=== PATIENT | female | born 1995 | race Caucasian/White ===

== ENCOUNTER → 2019-04-06 | Emergency (ER) | payer OTHER ==
[~2019-04-06] VITALS: Ht 165.1 cm; Wt 63.5 kg
[~2019-04-06] MED LIST: AUGMENTIN 875-1 EAC1 ORAL; DICYCLOMINE HCL10 MG ORAL; Ketorolac 30mg Inj IV ONE; Morphine Sulfate 4mg/ml Inj (IV USE ONLY) IVP ONE; ONDANSETRON ODT4 MG BC; Omnipaque-300 100ml vial INJ PRN
[2019-04-06 06:26] VITALS: BP 153/81
--- NOTE | 2019-04-06 06:28 | NUR ---
ER Nurse Note: Pt brought in by ambulance c/o abd pain with n/v from unk cause. Per pt, pt stated she could be but does not remember. Pt is moaning, guarding abd site. Pt stated she vomited prior to arrival. Denies taking meds, etoh, drugs. All safety measures met; will continue to montior.
--- NOTE | 2019-04-06 06:48 | Emergency Room Report ---
History of Present Illness General Chief Complaint: Abdominal Pain Source: Patient Present Illness HPI Disclaimer: Please note that this report is being documented using [employer] technology. This can lead to erroneous entry secondary to incorrect interpretation by the dictating instrument. HPI: 23-year-old female with history of cholelithiasis, untreated hepatitis C, IV drug abuse presents for evaluation of abdominal pain. Symptoms began 2 to 3 hours prior to arrival. She reports right-sided upper and lower cramping and sharp abdominal pain. She states the pain is more located in the right lower quadrant and radiates up to the right upper quadrant. Denies pain in the flanks. Denies history of kidney stones, ovarian cyst, ovarian torsion. Cannot recall last menstrual period; states they come very regularly. She does not use control. Denies any recent drug or alcohol abuse. She states she was supposed to have a cholecystectomy but never scheduled this. Denies any recent fevers, chills, chest pain, shortness of breath, cough, sore throat, diarrhea. 2 episodes of emesis prior to arrival. No current nausea. Denies dysuria, hematuria or vaginal bleeding or vaginal discharge. Pain is currently a 10/10. No associated relieving or exacerbating factors. PMH: Hepatitis C, IV drug abuse PSH: Denies Allergies: Denies Social Hx: Methamphetamine use, opiate abuse, alcohol use, tobacco use Allergies: Coded Allergies: No Known Allergies (Unverified , 04/06/19) Patient History Last Menstrual Period: refused to discuss Nursing Documentation-PMH Past Medical History: No History, Except For Review of Systems All Other Systems: negative except mentioned in HPI Physical Exam Vital Signs Date Time Temp Pulse Resp B/P (MAP) Pulse Ox O2 Delivery O2 Flow Rate FiO2 04/06/19 06:15 98.1 76 20 153/81 (105) 100 Room Air General: Awake and alert, writhing around in pain HEENT: NC/AT. EOMI. Neck: Supple, trachea midline Chest Wall: No tenderness, no deformity Cardiovascular: RRR. S1 and S2 normal. No murmur appreciated Resp: Normal work of breathing. No cough, wheezing or crackles appreciated Abdomen: Abdomen is soft, nondistended. Tender palpation in the right lower quadrant without rebound. Tenderness also in the right upper quadrant. Cannot perform Hooks's given patient cooperation. Tenderness in suprapubic and mild tenderness in left lower quadrant as well. Skin: Intact. No abrasions, laceration or rash over the exposed skin MSK: Normal tone and bulk. Moving all extremities. No obvious deformity. Neuro: Awake and alert. Mentating appropriately Medical Decision Making Diagnostic Impression: Primary Impression: Enteritis ER Course This is a 23-year-old female presenting for evaluation of 3 hours abdominal pain with 2 episodes of emesis. Differential includes was not limited to cholecystitis, pancreatitis, nephrolithiasis, hepatitis, appendicitis, ovarian cyst, ovarian torsion, UTI, pyelonephritis, mesenteric adenitis, bowel obstruction, mesenteric ischemia. Start a broad metabolic infectious work-up. Will send patient for a CT scan of the abdomen. Will provide IV fluids, antiemetics and pain medications. Laboratory Tests Test 04/06/19 06:30 04/06/19 08:05 White Blood Count 13.6 K/UL (4.8-10.8) H Red Blood Count 4.88 M/UL (4.20-5.40) Hemoglobin 14.8 G/DL (12.0-16.0) Hematocrit 38.9 % (37.0-47.0) Mean Corpuscular Volume 80 FL (80-99) Mean Corpuscular Hemoglobin 30.4 PG (27.0-31.0) Mean Corpuscular Hemoglobin Concent 38.2 G/DL (32.0-36.0) H Red Cell Distribution Width 11.9 % (11.6-14.8) Platelet Count 323 K/UL (150-450) Mean Platelet Volume 7.0 FL (6.5-10.1) Neutrophils (%) (Auto) 72.8 % (45.0-75.0) Lymphocytes (%) (Auto) 20.6 % (20.0-45.0) Monocytes (%) (Auto) 4.9 % (1.0-10.0) Eosinophils (%) (Auto) 0.1 % (0.0-3.0) Basophils (%) (Auto) 1.6 % (0.0-2.0) Sodium Level 139 MMOL/L (136-145) Potassium Level 4.3 MMOL/L (3.5-5.1) Chloride Level 101 MMOL/L (98-107) Carbon Dioxide Level 14 MMOL/L (21-32) L Anion Gap 25 mmol/L (5-15) H Blood Urea Nitrogen 13 mg/dL (7-18) Creatinine 0.9 MG/DL (0.55-1.30) Estimate Glomerular Filtration Rate > 60 mL/min (>60) Glucose Level 85 MG/DL (74-106) Calcium Level 9.7 MG/DL (8.5-10.1) Total Bilirubin 1.5 MG/DL (0.2-1.0) H Direct Bilirubin 0.2 MG/DL (0.0-0.3) Aspartate Amino Transferase (AST) 42 U/L (15-37) H Alanine Aminotransferase (ALT) 31 U/L (12-78) Alkaline Phosphatase 60 U/L (46-116) Total Protein 8.2 G/DL (6.4-8.2) Albumin 4.2 G/DL (3.4-5.0) Globulin 4.0 g/dL Albumin/Globulin Ratio 1.0 (1.0-2.7) Lipase 92 U/L (73-393) Urine Color Pale yellow Urine Appearance Clear Urine pH 5 (4.5-8.0) Urine Specific [place] 1.030 (1.005-1.035) Urine Protein 1+ (NEGATIVE) H Urine Glucose (UA) Negative (NEGATIVE) Urine Ketones 4+ (NEGATIVE) H Urine Blood Negative (NEGATIVE) Urine Nitrite Negative (NEGATIVE) Urine Bilirubin Negative (NEGATIVE) Urine Urobilinogen Normal MG/DL (0.0-1.0) Urine Leukocyte Esterase Negative (NEGATIVE) Urine RBC 0-2 /HPF (0 - 2) Urine WBC 0-2 /HPF (0 - 2) Urine Squamous Epithelial Cells Moderate /LPF (NONE/OCC) H Urine Bacteria Few /HPF (NONE) Urine HCG, Qualitative Negative (NEGATIVE) Urine Opiates Screen Positive (NEGATIVE) H Urine Barbiturates Screen Positive (NEGATIVE) H Phencyclidine (PCP) Screen Negative (NEGATIVE) Urine Amphetamines Screen Positive (NEGATIVE) H Urine Benzodiazepines Screen Negative (NEGATIVE) Urine Cocaine Screen Negative (NEGATIVE) Urine Marijuana (THC) Screen Positive (NEGATIVE) H CT/MRI/US Diagnostic Results CT/MRI/US Diagnostic Results : Impression IMPRESSION: Probable mild enteritis with the mild dilatation of mid small bowel loops. Please correlate clinically. Normal appendix Reevaluation Time: 11:59 Last Vital Signs Date Time Temp Pulse Resp B/P (MAP) Pulse Ox O2 Delivery O2 Flow Rate FiO2 04/06/19 06:26 98.1 80 20 153/81 100 Room Air Reevaluation Impression Labs have returned largely within normal limits. Tox screen positive for opiates, barbiturates, amphetamines, THC. No evidence of infection on urinalysis. CT consistent with an enteritis. May be withdrawal or an infectious enteritis. Given the patient's poor follow-up and risk factors will start antibiotics. We will continue antiemetics. Can follow-up on an outpatient basis. Can return with new or worsening symptoms. Disposition: HOME, SELF-CARE Condition: Stable Scripts Dicyclomine Hcl* (DICYCLOMINE HCL*) 10 Mg Capsule 10 MG ORAL QID, #20 CAP Prov: Neil Del Castillo MD 04/06/19 Ondansetron Odt* (ZOFRAN ODT*) 4 Mg Tab.rapdis 4 MG BC EVERY 6 HOURS PRN for Nausea & Vomiting, #20 TAB 0 Refills Prov: Neil Del Castillo MD 04/06/19 Amoxicillin/Potassium Clav 875-125* (AUGMENTIN 875-125 TABLET*) 1 Each Tablet 1 TAB ORAL TWICE A DAY, #14 TAB Prov: Neil Del Castillo MD 04/06/19 Neil Del Castillo MD Apr 06, 2019 06:48
[2019-04-06 07:05] LABS: ANION GAP 25 mmol/L (5-15); BLOOD UREA NITROGEN 13 mg/dL (7-18); CALCIUM 9.7 MG/DL (8.5-10.1); CARBON DIOXIDE 14 MMOL/L (21-32); CHLORIDE 101 MMOL/L (98-107); CREATININE 0.9 MG/DL (0.55-1.30); POTASSIUM 4.3 MMOL/L (3.5-5.1); SODIUM 139 MMOL/L (136-145)
--- NOTE | 2019-04-06 07:08 | NUR ---
ER Nurse Note: Report given to JEYSON Henderson for continuity of care. Fluids infusing, meds given by second RN. Pt has not provided urine sample, Beatriz notified. All safety measures met; will endorse care to oncoming shift.
[2019-04-06 07:10] LABS: BASOPHILS % (AUTO) 1.6 % (0.0-2.0); EOSINOPHILS % (AUTO) 0.1 % (0.0-3.0); HEMATOCRIT 38.9 % (37.0-47.0); HEMOGLOBIN 14.8 G/DL (12.0-16.0); LYMPHOCYTES % (AUTO) 20.6 % (20.0-45.0); MEAN CORPUSCULAR VOLUME 80 FL (80-99); MONOCYTES % (AUTO) 4.9 % (1.0-10.0); NEUTROPHILS % (AUTO) 72.8 % (45.0-75.0); PLATELET COUNT 323 K/UL (150-450); RED BLOOD COUNT 4.88 M/UL (4.20-5.40); RED CELL DISTRIBUTION WIDTH 11.9 % (11.6-14.8); WHITE BLOOD COUNT 13.6 K/UL (4.8-10.8)
--- NOTE | 2019-04-06 07:10 | NUR ---
ED Nurse Note: RECEIVED PATIENT IN BED, PATIENT IS GUARDING AND IN PAIN, NOTIFIED TO DR RECINOS, AT THIS TIME AWAITING FOR URINE PREG TEST. EXPLAINED TO THE PATIENT AND PROVIDED WITH BEDPAN TO ASSIST, PATIENT VERBALIZED UNDERSTANDING. FLUID IS INFUSING WITHOUT COMPLICATION.
[2019-04-06 07:15] LABS: ALANINE AMINOTRANSFERASE 31 U/L (12-78); ALBUMIN 4.2 G/DL (3.4-5.0); ALKALINE PHOSPHATASE 60 U/L (46-116); ASPARTATE AMINO TRANSFERASE 42 U/L (15-37); BILIRUBIN,TOTAL 1.5 MG/DL (0.2-1.0)
[2019-04-06 07:25] LABS: BILIRUBIN,DIRECT 0.2 MG/DL (0.0-0.3)
--- NOTE | 2019-04-06 08:11 | NUR ---
ED Nurse Note: urine sent to lab
[2019-04-06 08:19] LABS: APPEARANCE,URINE CLEAR; BILIRUBIN, URINE NEGATIVE (NEGATIVE); COLOR,URINE PALE YELLOW; GLUCOSE, URINE (UA) NEGATIVE (NEGATIVE); KETONES,URINE 4+ (NEGATIVE); LEUKOCYTE ESTERASE ,URINE NEGATIVE (NEGATIVE); NITRITE,URINE NEGATIVE (NEGATIVE); PH,URINE 5 (4.5-8.0); PROTEIN,URINE 1+ (NEGATIVE); UROBILINOGEN,URINE NORMAL MG/DL (0.0-1.0)
--- NOTE | 2019-04-06 08:41 | NUR ---
ED Nurse Note: patient taken to CT scan.
--- NOTE | 2019-04-06 09:39 | NUR ---
ED Nurse Note: patient unable to tolerate CT scan at this time due to pain. notified to Dr. Del Castillo.
--- NOTE | 2019-04-06 10:02 | NUR ---
ED Nurse Note: patient from sober living facility: [facility] [phone]
--- NOTE | 2019-04-06 11:46 | Diagnostic Imaging Report ---
INDICATION: Abdominal pain TECHNIQUE: Continuous helical transaxial imaging of the abdomen and pelvis was obtained from the lung bases to the pubic symphysis during intravenous contrast administration. Coronal 2-D reformats were also obtained. Study obtained in a Siemens sensation [address] Automatic Exposure Control was utilized. Total Dose length Product (DLP): 202.[address] Dose Index Volume (CTDIvol): 4.2 mGy COMPARISON: None FINDINGS: There is motion artifact limiting evaluation on this study. Lungs: The visualized lung bases are clear. Liver: The liver is hypodense consistent with fatty infiltration. Gallbladder/biliary system: No gallstones are identified. There is no evidence of intrahepatic or extrahepatic biliary ductal dilatation. Spleen: Unremarkable Pancreas: Unremarkable Kidneys/Bladder: No hydronephrosis identified. Both kidneys enhance symmetrically. The urinary bladder is unremarkable.. Adrenal glands: Unremarkable Aorta/IVC: Unremarkable Bowel: Mild distention of the mid small bowel loops noted. This may be due to mild enteritis. Correlate clinically. Peritoneum: There is minimal free fluid within the pelvis which may be physiologic accounting for patient's age and sex. Uterus is noted. The appendix is normal.. Bones: Unremarkable IMPRESSION: Probable mild enteritis with the mild dilatation of mid small bowel loops. Please correlate clinically. Normal appendix Limited study due to motion The CT scanner at [facility] is accredited by the [employer] and the scans are performed using dose optimization techniques as appropriate to a performed exam including Automatic Exposure control.
[2019-04-06 12:06] VITALS: BP 127/72
[2019-04-06 12:07] VITALS: BP 127/72
--- NOTE | 2019-04-06 12:07 | NUR ---
ER DISCHARGE NOTE: Patient is cleared to be discharged per ERMD DR RECINOS pt is aox4, on room air, with stable vital signs. pt was given dc and prescription instructions, pt was able to verbalize understanding, pt id band and iv site removed without complications. pt is able to ambulate with steady gait. pt took all belongings.
== END | disposition home or self-care (01) ==
LOC: EDBD 06:12 → EMR 06:50
DX: K52.9 Noninfective gastroenteritis and colitis, unspecified (principal); F15.90 Other stimulant use, unspecified, uncomplicated; F11.10 Opioid abuse, uncomplicated; F13.10 Sedative, hypnotic or anxiolytic abuse, uncomplicated; F12.10 Cannabis abuse, uncomplicated; F10.10 Alcohol abuse, uncomplicated; B19.20 Unspecified viral hepatitis C without hepatic coma; Z72.0 Tobacco use; Y90.9 Presence of alcohol in blood, level not specified
CPT/HCPCS: 36415; 74177; 80053; 80307; 81003; 81025; 82248; 83690; 85025; 96361; 96374; 96375; 96376; J1885; J2270; J2405; J7030; Q9967; S0028; Z7502; 99284